=== PATIENT | male | born 1965 | race Caucasian/White ===

== ENCOUNTER 2020-11-08 21:24 | Emergency (ER) | payer BC, MEDICAID ==
--- NOTE | 2020-11-08 23:41 | EDM.PDOC ---
ED HPI GENERAL MEDICAL PROBLEM - General Chief Complaint: Neurological Problem Stated Complaint: HEADACHE/SYNCOPE Time Seen by Provider: 11/08/20 22:15 Source of Information: Reports: Patient History Limitations: Reports: No Limitations - History of Present Illness INITIAL COMMENTS - FREE TEXT/NARRATIVE: She is a 55-year-old male who is complaining of having right-sided headaches which are increased in frequency and severity for the last several weeks. Patient states his headaches are occurring every other day and rates them as a 6 out of 10 intensity at their worse now after taking Aleve he has 4 out of 10 intensity. Patient is also having dizziness with this that is episodic but does not seem to be orthostatic. He states that his vision is changed last several months with a being more blurry. He is not nauseous or vomiting no fever chills no sinus pressure discharge no new numbness or weakness. Patient did have a history of migraines approximately 40 years ago but has not had any since before last several weeks. Patient also has been under more stress recently and has had some trouble with his attention. He denies any syncopal episodes. Onset: Unknown/Unsure Duration: Waxing/Waning Location: Reports: Head Quality: Reports: Ache Severity: Moderate Improves with: Reports: None Worsens with: Reports: None - Related Data Home Meds: Home Meds Meclizine [Antivert] 25 mg PO TID PRN #14 tab 11/08/20 [Rx] Past Medical History Psychiatric History: Reports: Depression Endocrine/Metabolic History: Reports: Diabetes, Type II - Past Surgical History Musculoskeletal Surgical History: Reports: Knee Replacement, Other (See Below) Other Musculoskeletal Surgeries/Procedures:: repair of R) middle finger, multiple. R) rib resection Social & Family History - Tobacco Use Tobacco Use Status *Q: Never Tobacco User - Recreational Drug Use Recreational Drug Use: No ED ROS GENERAL - Review of Systems Review Of Systems: Comprehensive ROS is negative, except as noted in HPI. Constitutional: Reports: No Symptoms HEENT: Reports: No Symptoms Respiratory: Reports: No Symptoms. Denies: Shortness of Breath Cardiovascular: Reports: No Symptoms. Denies: Chest Pain Neurological: Reports: Dizziness, Headache. Denies: Syncope, Trouble Speaking, Difficulty Walking, Gait Disturbance Psychiatric: Reports: No Symptoms ED EXAM, NEURO - Physical Exam Exam: See Below Exam Limited By: No Limitations General Appearance: Alert, No Apparent Distress Eye Exam: Bilateral Eye: PERRL Head Exam: Atraumatic, Normocephalic Neck: Normal Inspection, Supple Respiratory/Chest: No Respiratory Distress Cardiovascular: Regular Rate, Rhythm, No Edema, No JVD GI/Abdominal: Normal Bowel Sounds, Non-Tender Neurological: Alert, CN II-XII Intact, No Motor/Sensory Deficits, Oriented x 3 Back Exam: Normal Inspection Extremities: Normal Inspection Psychiatric: Normal Affect, Normal Mood Skin Exam: Warm, Dry Course - Vital Signs Text/Narrative:: Patient's orthostatic vital signs were positive indicating dehydration. CAT scan of his brain shows no acute disease. The rest of his lab work was unremarkable. Patient is reassured that he does not have diabetes currently. He is feeling better after receiving meclizine. I will discharge her with a prescription for additional meclizine and he is aware he can get this [id number] in the future if he has need for it. Patient is to return to ER if his symptoms are worse. Otherwise take Tylenol and ibuprofen for his headaches and to stay well-hydrated. Last Recorded V/S: Orthostatic Blood Pressure [ 151/99 Standing] Orthostatic Blood Pressure [ 143/100 Sitting] Orthostatic Blood Pressure [ 148/93 Supine] - Orders/Labs/Meds Orders: Active Orders 24 hr Category Date Time Status Head wo Cont [CT] Stat Exams 11/08/20 22:11 Taken Labs: Laboratory Tests 11/08/20 11/08/20 Range/Units 22:25 22:25 WBC 11.08 H (4.23-9.07) K/mm3 RBC 4.92 (4.63-6.08) M/mm3 Hgb 14.2 (13.7-17.5) gm/dl Hct 41.3 (40.1-51.0) % MCV 83.9 (79.0-92.2) fl MCH 28.9 (25.7-32.2) pg MCHC 34.4 (32.2-35.5) g/dl RDW Std Deviation 41.9 (35.1-43.9) fL Plt Count 222 (163-337) K/mm3 MPV 9.5 (9.4-12.3) fl Neut % (Auto) 65.4 (34.0-67.9) % Lymph % (Auto) 22.3 (21.8-53.1) % [place] % (Auto) 7.5 (5.3-12.2) % Eos % (Auto) 3.9 (0.8-7.0) Baso % (Auto) 0.5 (0.1-1.2) % Neut # (Auto) 7.26 H (1.78-5.38) K/mm3 Lymph # (Auto) 2.47 (1.32-3.57) K/mm3 [place] # (Auto) 0.83 H (0.30-0.82) K/mm3 Eos # (Auto) 0.43 (0.04-0.54) K/mm3 Baso # (Auto) 0.05 (0.01-0.08) K/mm3 Sodium 139 (136-145) mEq/L Potassium 3.6 (3.5-5.1) mEq/L Chloride 104 (98-107) mEq/L Carbon Dioxide 24 (21-32) mEq/L Anion Gap 14.6 (5-15) BUN 10 (7-18) mg/dL Creatinine 0.7 (0.7-1.3) mg/dL Est Cr Clr Drug Dosing TNP Estimated GFR (MDRD) > 60 (>60) mL/min BUN/Creatinine Ratio 14.3 (14-18) Glucose 157 H (70-99) mg/dL Calcium 8.9 (8.5-10.1) mg/dL Total Bilirubin 0.5 (0.2-1.0) mg/dL AST 42 H (15-37) U/L ALT 63 (16-63) U/L Alkaline Phosphatase 76 (46-116) U/L Total Protein 7.7 (6.4-8.2) g/dl Albumin 3.9 (3.4-5.0) g/dl Globulin 3.8 gm/dL Albumin/Globulin Ratio 1.0 (1-2) Meds: Medications Discontinued Medications Generic Name Dose Route Start Last Admin Trade Name Freq PRN Reason Stop Dose Admin Meclizine HCl 25 mg 11/08/20 22:12 11/08/20 22:23 Meclizine 25 Mg Tab.Chew PO 11/08/20 22:13 25 mg NOW STA Administration Departure - Departure Time of Disposition: 23:42 Disposition: Home, Self-Care 01 Condition: Good Clinical Impression: Migraine headache, Dizziness, Dehydration - Discharge Information *PRESCRIPTION DRUG MONITORING PROGRAM REVIEWED*: No Instructions: Dehydration, Adult, [id number], Chronic Migraine Headache, [id number], Vertigo, [id number] Referrals: PCP,None [Primary Care Provider] - Additional Instructions: Increase fluids to keep urine light yellow to clear in color. Tylenol and Motrin as needed. Follow-up with PCP if symptoms continue. Return to ER symptoms are worse. Meclizine as needed. - My Orders Last 24 Hours: My Active Orders 11/08/20 22:11 Head wo Cont [CT] Stat - Assessment/Plan Last 24 Hours: My Active Orders 11/08/20 22:11 Head wo Cont [CT] Stat
--- NOTE | 2020-11-09 07:12 | CT ---
Head CT Technique: Multiple axial sections through the brain were obtained. Intravenous contrast was not utilized. Reconstructed coronal and sagittal images were obtained. Comparison: No prior intracranial imaging is available. Findings: Ventricles along with basal cisterns and sulci over the convexities appear within normal limits for the patient's age. No abnormal parenchymal densities are seen. No evidence of intracranial hemorrhage is seen. No midline shift or mass-effect is seen. Bone window settings were reviewed. Visualized mastoid sinuses and paranasal sinuses show nothing acute. No acute calvarial abnormality is appreciated. Impression: 1. Nothing acute is appreciated on noncontrast head CT study. Diagnostic code #1 I agree with preliminary report from [facility], finalized on 11/09/20, 12:01 AM CDT, code 1
== END 2020-11-08 23:56 | disposition home or self-care (01) ==
LOC: JD.ED 21:24
DX: G43.909 Migraine, unspecified, not intractable, without status migrainosus (principal); E86.0 Dehydration; E11.9 Type 2 diabetes mellitus without complications
CPT/HCPCS: 36415; 70450; 80053; 85025; 99284; A9270; 99283